=== PATIENT | male | born 1980 | race African-American/Black ===

== ENCOUNTER 2016-07-07 17:20 | Emergency (ER) | payer SELFPAY ==
[~2016-07-07] VITALS: Ht 175.3 cm; Wt 115.7 kg
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
[2016-07-07 17:57] VITALS: BP 156/91
== END 2016-07-07 17:58 | disposition home or self-care (01) ==
LOC: EDUNIT# 17:20 → ER 17:25
DX: K43.2 Incisional hernia without obstruction or gangrene (principal); F17.210 Nicotine dependence, cigarettes, uncomplicated
CPT/HCPCS: 99281